=== PATIENT | male | born 1990 ===

== ENCOUNTER 2018-12-27 09:00 | Day surgery (SDC) | payer SELFPAY ==
[~2018-12-27 09:00] MED LIST: DEXAMETHASONE 20 MG/5 ML (4 MG/ML SOL) ONE; FENTANYL 100MCG/2ML SOL ONE; METOCLOPRAMIDE HYDROCHLORIDE 5 MG/ML SOL ONE; MIDAZOLAM 2 MG/2 ML SOL ONE; ONDANSETRON HCL 4 MG/2 ML SOL ONE; PROPOFOL 500 MG/50 ML EMU IV ONE
[2018-12-27] MEDS ORDERED: BUPIVACAINE HCL 0.25% MPF 30 ML SOL INFIL ONE (10:16)
[2018-12-27] MEDS ORDERED: HYDROMORPHONE 1 MG/ML SYRINGE ONE (10:44)
[2018-12-27] MEDS ORDERED: CEFAZOLIN SODIUM 1 GM PDS ONE (10:52)
[2018-12-27] MEDS ORDERED: LIDOCAINE HCL 1% MPF 30 SOL ONE (10:52)
[2018-12-27] MEDS ORDERED: KETOROLAC TROMETHAMINE 30 MG/ML SOL ONE (12:11)
[2018-12-27] MEDS: FENTANYL 100MCG/2ML SOL ONE ×2 (12:13→12:26)
[2018-12-27] MEDS ORDERED: APAP/HYDROCODONE 1 EACH TABLET ONE (13:46)
[2018-12-27] MEDS ORDERED: FUROSEMIDE 40 MG SOL ONE (15:08)
[2018-12-27] MEDS ORDERED: SODIUM CHLORIDE 0.9% FLUSH 10 ML SOL IV ONE (15:12)
[2018-12-27] MEDS ORDERED: ALBUTEROL NEB SOL 2.5MG/3ML 1 VIAL SOL NEB PRN (17:13)
[2018-12-27] MEDS ORDERED: PIPERACILLIN/TAZOBACT 3.375 GM PDS IV ONE (17:41)
[2018-12-27] MEDS ORDERED: SODIUM CHLORIDE 0.9% 100 ML 100 ML IV ONE (17:42)
[2018-12-27] MEDS: PIPERACILLIN/TAZOBACT 3.375 GM 3.375 GM in SODIUM CHLORIDE 0.9% 100 ML 100 ML IV SCH (17:51)
[2018-12-27] MEDS: ALBUTEROL/IPRATROPIUM 1 VIAL SOL INH SCH (18:02)
[2018-12-27] MEDS ORDERED: NICOTINE 7 MG PATCH TD SCH (19:00)
[2018-12-27] MEDS: APAP/HYDROCODONE 1 EACH TABLET PO PRN ×2 (19:36→23:10)
[2018-12-28] MEDS ORDERED: PIPERACILLIN/TAZOBACT 3.375 GM PDS IV ONE ×3 (00:05→10:27)
[2018-12-28] MEDS: ALBUTEROL/IPRATROPIUM 1 VIAL SOL INH SCH ×3 (00:07→11:22)
[2018-12-28] MEDS: PIPERACILLIN/TAZOBACT 3.375 GM 3.375 GM in SODIUM CHLORIDE 0.9% 100 ML 100 ML IV SCH ×3 (00:11→11:25)
[2018-12-28] MEDS: SODIUM CHLORIDE 0.9% FLUSH 10 ML SOL IV PRN ×3 (06:33→11:25)
[2018-12-28] MEDS: APAP/HYDROCODONE 1 EACH TABLET PO PRN ×2 (08:15→12:51)
[2018-12-28] MEDS ORDERED: SODIUM CHLORIDE 0.9% 100 ML 100 ML IV ONE (10:27)
[2018-12-28 11:22] VITALS: BP 105/55; RESP 12; TEMP 98.3
[2018-12-28 11:53] VITALS: PULSE 76; O2SAT 98
== END 2018-12-28 13:00 | disposition home or self-care (01) | DRG 940 ==
LOC: SURG 09:00 → ACUTE CARE 17:17 → SURG 12-28 13:00
PROVIDERS: ATTEND Orthopaedic Surgery
PROC: 0LQN0ZZ Repair Right Lower Leg Tendon, Open Approach (ICD-10-PCS; principal; 2018-12-27 10:00)
DX: S86.011D Strain of right Achilles tendon, subsequent encounter (principal); J95.4 Chemical pneumonitis due to anesthesia; Y95 Nosocomial condition; H91.93 Unspecified hearing loss, bilateral; Z98.890 Other specified postprocedural states
CPT/HCPCS: 71045; 94640; J0690; J1100; J1885; J1940; J2250; J2405; J2543; J2765; J3010; J7613; A6402; A9270-GY; J1170; J2001; J2704